=== PATIENT | male | born 1955 | race African-American/Black ===

== ENCOUNTER 2021-02-19 11:23 | Outpatient (CLI) | payer OTHER | END 2021-02-19 11:24 | disposition home or self-care (01) | LOC: CSHRAD 11:23 | PROVIDERS: ATTEND Psychiatry & Neurology Neurology | DX: M54.5 Low back pain (principal); M47.816 Spondylosis without myelopathy or radiculopathy, lumbar region | CPT/HCPCS: 72100 ==